=== PATIENT | female | born 1975 | race Caucasian/White ===

== ENCOUNTER 2023-05-02 09:29 | Outpatient (REF) | payer OTHER, SELFPAY ==
--- NOTE | ~2023-05-02 | XR_ITS ---
EXAMINATION: XR ANKLE, LEFT CLINICAL INFORMATION: Left ankle injury one week ago. COMPARISON: None available. TECHNIQUE: AP, lateral, and mortise views of the left ankle. FINDINGS: There is a small calcaneal heel enthesophyte. Ankle mortise and subtalar joints are normal. No visible acute fracture, dislocation or subluxation seen. There is moderate bimalleolar soft tissue swelling. XR/XR ankle LT min 3V IMPRESSION: 1. Moderate bimalleolar soft tissue swelling. No visible acute fracture or dislocation seen. 2. Small calcaneal heel enthesophyte.
== END 2023-05-02 09:30 | disposition home or self-care (01) ==
LOC: HO.HHCX 09:29
PROVIDERS: Visit Provider Family Medicine
DX: S93.492A Sprain of other ligament of left ankle, initial encounter (principal)
CPT/HCPCS: 73610

== ENCOUNTER 2023-10-15 18:06 | Outpatient (REF) | payer OTHER, SELFPAY | END 2023-10-15 18:07 | disposition home or self-care (01) | LOC: HO.HHCLNP 18:06 | PROVIDERS: Visit Provider Student in an Organized Health Care Education/Training Program | DX: H02.9 Unspecified disorder of eyelid (principal) | CPT/HCPCS: 36415; 87255 ==

== ENCOUNTER → 2024-04-29 09:17 | Outpatient (BNV) | payer OTHER, SELFPAY | PROVIDERS: Visit Provider Radiology Diagnostic Radiology | DX: M25.562 Pain in left knee (principal) | CPT/HCPCS: 73564 ==

== ENCOUNTER 2024-06-30 12:53 | Outpatient (REF) | payer OTHER, SELFPAY ==
--- OUTSIDE RECORDS SUMMARY | 2024-06-30 14:54 | XMS_ITS | Encounter Summary ---
Author Organization [facility] Address 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 Role Phone Emelyn Kenney MD Primary Care Provider [phone] Belle Castellanos OD Unavailable Encounter Details Date Type Department Care Team (Late st Contact Info) Description 04/26/2022 Abstract [facility] [place] [facility] [address] [place], [place] [phone] Emelyn Kenney MD [address] [place], [place] [phone] Social History Tobacco Use Types Packs/Day Years Used Date Smoking Tobacco: Never Assessed Comments Unknown Sex and Gender Information Value Date Recorded Sex Assigned at Female 01/21/2022 10:16 AM EDT Legal Sex Female 10:16 AM EDT Gender Identity Female 01/21/2022 10:16 AM EDT Sexual Orientation Straight 01/21/2022 10 :16 AM EDT documented as of this encounter Plan of Treatment Not on file documented as of this encounter Procedures Procedure Name Priority Date/Time Associated Diagnosis Comments MAMMOGRAPHY Routine 09/21/2018 PAP SMEAR Routine 10/25/2016 12:00 AM EDT documented in this encounter Results * Mammography (09/21/2018) Mammogram normal Anatomical Region Laterality Modality Other Historical Provider HEALTH MAINTENANCE Final Result * Pap Smear (10/25/2016 12:00 AM EDT) Swab us Historical Provider LAB CYTOLOGY ORDERABLES F inal Result IMAGING documented in this encounter Visit Diagnoses Not on filedocumented in this encounter Care Teams Dairy Farm Operator Relationship Specialty Start Date End Date Emelyn Kenney MD [address] [place], [place] [phone] PCP - General Family Medicine 11/12/11 Belle Castellanos OD [address] [place] [address] Optometry 03/30/24 Kutr Jane MD [facility] [address] [place] [address] Electrophysiology 03/30/24 documented as of this encounter
--- OUTSIDE RECORDS SUMMARY | 2024-06-30 14:54 | XMS_ITS | Clinical Summary ---
Author Organization [employer] Address [address] [place] [address] Care Team Providers Care Senior Vice President And Chief Information Officer Name Role Phone Emelyn Kenney MD Primary Care Provider [phone] Belle Castellanos OD Unavailable [phone] Allergies No known active allergies Medications metoprolol tartrate (Lopressor) 25 MG tabletIndication s:Hypertension, unspecified type TAKE 1/2 TABLET BY MOUTH 2 TIMES EVERY DAY 90 tablet 3 4 Active omeprazole (PriLOSEC) [address] Moran ns:Gastroesophag eal reflux disease without esophagitis TAKE 1 CAPSULE BY MOUTH TWICE A DAY 180 capsule 3 4 Active warfarin (Coumadin) 5 MG tabletIndication s:Heart valve disorder TAKE DIRECTED BY COUMADIN CLINIC BASED ON INR LEVEL. MAX 2 TABLETS BY MOUTH PER DAY. 180 tablet 3 4 Active Active Problems Problem Noted Date Diagnosed Date Dietary counseling 04/19/2024 Assessment & Plan (04/19/2024 9:36 AM EST): Dietary Recommendations: Fruits, vegetables, whole grains, protein foods, and fat-free or low-fat dairy products are healthy choices. Eat different types of protein foods in your diet. This can include seafood, lean meats, poultry, beans, peas, lentils, nuts, seeds, soy products, and eggs. Limit foods and beverages higher in added sugars, saturated fat, and sodium. Exercise counseling 04/19/2024 Assessment & Plan (04/19/2024 9:36 AM EST): Exercise Recommendations: At least 150 minutes of moderate-intensity physical activity per week, or an equivalent combination of moderate- and vigorous-intensity activity Prediabetes 04/19/2024 Overview (04/19/2024): Lab Results Component Value Date HGBA1C 5.7 03/29/2024 -encouraged lifestyle modifications. Assessment & Plan (04/19/2024 9:40 AM EST): Lab Results Component Value Date HGBA1C 5.7 03/29/2024 -encouraged lifestyle modifications. Right knee pain 04/19/2024 Overview (04/19/2024): R knee pain x3 week. No erythema, induration or increased warmth on exam. No palpable effusion. Suspect arthritic changes versus pressure from excess tissue. Discussed resting and doing exercise as tolerable. Offered PT, pt declined. Encouraged to monitor pain to see if after starting GLP-1 if pain improves. Assessment & Plan (04/19/2024 9:43 AM EST): R knee pain x3 week. No erythema, induration or increased warmth on exam. No palpable effusion. Suspect arthritic changes versus pressure from excess tissue. Discussed resting and doing exercise as tolerable. Offered PT, pt declined. Encouraged to monitor pain to see if after starting GLP-1 if pain improves. Other specified health status 03/29/2024 Overview (04/19/2024): -next comprehensive annual evaluation due after 04/19/25 -eye care facilitated by [facility] -dental home is [facility], but does not visit the dentist due to anxiety. -belkis care proxy 03/29/24 Assessment & Plan (04/19/2024 9:32 AM EST): -next comprehensive annual evaluation due after 04/19/25 -eye care facilitated by [facility] -dental home is [facility], but does not visit the dentist due to anxiety. -belkis care proxy 03/29/24 Screening mammogram for breast cancer 03/29/2024 Overview (03/29/2024): - Ordered BI Mammogram Screening Tomosynthesis Bilateral 03/29/24 Assessment & Plan (03/29/2024 10:25 AM EST): - Ordered BI Mammogram Screening Tomosynthesis Bilateral 03/29/24 Pre-syncope 03/29/2024 Overview (03/29/2024): Presyncopal episode at work 03/29/23 with associated hot flash. Likely hotflash vasomotor sx. EKG nl, BS, A12c and hgb normal, Continue to monitor cool drinks and hydration Assessment & Plan (03/29/2024 12:13 PM EST): Presyncopal episode at work 03/29/23 with associated hot flash. Likely hotflash vasomotor sx. EKG nl, BS, A12c and hgb normal, Continue to monitor cool drinks and hydration Cardiac risk counseling 02/26/2024 Overview (02/26/2024): Calculated 02/26/24 The ASCVD Risk score (Sofia TODD, et al., 2019) failed to calculate for the following reasons: Cannot find a previous HDL lab Cannot find a previous total cholesterol lab No results found for: LDLCHOLCAL -Atherosclerotic Cardiovascular Disease (ASCVD) Risk Calculator is intended for a person age 40-79 without ASCVD and with LDL-cholesterol < 190/mg/dl to assesses the chances of developing heart disease over the next 10 years. -ACC/AHA risk categories based on a person's estimated 10-year risk of CVD: ?Low - <5 percent ?Borderline risk - 5 to 7.4 percent ?Intermediate risk- 7.5 to 19.9 percent ?High risk- >=20 percent -Tobacco cessation: not applicable -Statin therapy:N/A -Importance of moderate physical activity and nutrition interventions discussed. Colon cancer screening 04/30/2023 Overview (03/29/2024): -due for colon cancer screening, discuss at next visit - Ordered Cologuard Colon Cancer Screening 03/29/24 Assessment & Plan (03/29/2024 10:24 AM EST): -due for colon cancer screening, discuss at next visit - Ordered Cologuard Colon Cancer Screening 03/29/24 Tricuspid valve insufficiency 07/18/2022 Obesity 07/18/2022 Overview (04/19/2024): Baseline weight: 237 lbs 04/19/24 -given BMI >30kg/m2 or >27kg/m2 with one or more weight related comorbidities including hypertension, prediabetes, heart disease, and atrial fibrillation, pt is a candidate for glucagon-like peptide-1s (GLP-1) to assist with weight loss -pt has attempted > 3 months of dietary changes and increased physical activity without significant reduction in weight -patient counseled this medication is to be used in combination with reduced calorie diet and increased physical activity -Contraindication to phentermine: uncontrolled hypertension and arrhythmias -Reviewed w/ pt side effects of GLP1 and how to mitigate incl eating small portions and do not eat through sensation of fullness. No personal or family h/o papillary thyroid cancer. No personal h/o pancreatitis. Does/does not have retinopathy. Refrigerate but do not freeze. -For Zepbound (tirzepatide) Start 2.5mg subcutaneously q week x 1 month, then 5mg subcutaneously q week. May increased by 2.5mg q 4 weeks with max 15mg/wk -rx for tirzepatitis 2.5mg written 03/29/24 -has not received Zepbound, called Pharmacy, who is awaiting approval and will check in for needed approval 04/19/24 Assessment & Plan (04/19/2024 9:39 AM EST): Baseline weight: 237 lbs 04/19/24 -given BMI >30kg/m2 or >27kg/m2 with one or more weight related comorbidities including hypertension, prediabetes, heart disease, and atrial fibrillation, pt is a candidate for glucagon-like peptide-1s (GLP-1) to assist with weight loss -pt has attempted > 3 months of dietary changes and increased physical activity without significant reduction in weight -patient counseled this medication is to be used in combination with reduced calorie diet and increased physical activity -Contraindication to phentermine: uncontrolled hypertension and arrhythmias -Reviewed w/ pt side effects of GLP1 and how to mitigate incl eating small portions and do not eat through sensation of fullness. No personal or family h/o papillary thyroid cancer. No personal h/o pancreatitis. Does/does not have retinopathy. Refrigerate but do not freeze. -For Zepbound (tirzepatide) Start 2.5mg subcutaneously q week x 1 month, then 5mg subcutaneously q week. May increased by 2.5mg q 4 weeks with max 15mg/wk -rx for tirzepatitis 2.5mg written 03/29/24 -has not received Zepbound, called Pharmacy, who is awaiting approval and will check in for needed approval 04/19/24 Assessment & Plan (03/29/2024 10:23 AM EST): Baseline weight: 235 lbs 03/29/24 -given BMI >30kg/m2 or >27kg/m2 with one or more weight related comorbidities including hypertension, heart disease, and atrial fibrillation, pt is a candidate for glucagon-like peptide-1s (GLP-1) to assist with weight loss -pt has attempted > 3 months of dietary changes and increased physical activity without significant reduction in weight -patient counseled this medication is to be used in combination with reduced calorie diet and increased physical activity -Contraindication to phentermine: uncontrolled hypertension and arrhythmias -Reviewed w/ pt side effects of GLP1 and how to mitigate incl eating small portions and do not eat through sensation of fullness. No personal or family h/o papillary thyroid cancer. No personal h/o pancreatitis. Does/does not have retinopathy. Refrigerate but do not freeze. -For Zepbound (tirzepatide) Start 2.5mg subcutaneously q week x 1 month, then 5mg subcutaneously q week. May increased by 2.5mg q 4 weeks with max 15mg/wk -rx for tirzepatitis 2.5mg written 03/29/24 S/P MVR (mitral valve replacement) 07/18/2022 Overview (07/18/2022): Hx severe mitral stenosis and severe tricuspid regurgitation. S/P mechanical mitral valve repair 01/17/17 with tricuspid valve repair and removal of left atrial appendage as well as placement of pacemaker. On chronic anticoagulation. Assessment & Plan (04/19/2024 9:35 AM EST): Hx severe mitral stenosis and severe tricuspid regurgitation. S/P mechanical mitral valve repair 01/17/17 with tricuspid valve repair and removal of left atrial appendage as well as placement of pacemaker. On chronic anticoagulation. Assessment & Plan (07/18/2022 9:28 AM EDT): Hx severe mitral stenosis and severe tricuspid regurgitation. S/P mechanical mitral valve repair 01/17/17 with tricuspid valve repair and removal of left atrial appendage as well as placement of pacemaker. On chronic anticoagulation. Pleural effusion 07/18/2022 Mitral valve stenosis 07/18/2022 Iron deficiency anemia 07/18/2022 Heart murmur 07/18/2022 Abnormal cervical Papanicolaou smear 07/18/2022 Overview (04/19/2024): 04/2012 pap negatvie09/22 pap ASCUS. 11/23 colpo LGSIL, bx CIN1, ecc qns. 03/26: pap SCUS +HPV. 07/24: pap ASCUS. 02/23: pap neg. 06/25: pap ASCUS. 10/25: pap nge. 07/26 - pap: neg. 05/27 pap neg. 03/01 pap LGSIL. -PAP on 06/17/22 NILM, HPV neg, next due on 07/19/2027 Pacemaker 07/18/2022 Overview (07/18/2022): Continue to FU every 6 months with specialist. Assessment & Plan (07/18/2022 9:28 AM EDT): Continue to FU every 6 months with specialist. Chronic fatigue 07/18/2022 Overview (07/18/2022): Improved. Assessment & Plan (07/18/2022 9:27 AM EDT): Improved. Anticoagulated on Coumadin 07/18/2022 Overview (07/18/2022): Followed [facility] coumadin clinic. Goal INR 2.5-3.5. - Pt uses 7.5-10mg mg tabs daily. Assessment & Plan (07/18/2022 9:27 AM EDT): Followed [facility] coumadin clinic. Goal INR 2.5-3.5. - Pt uses 7.5-10mg mg tabs daily. Gastroesophageal reflux disease 07/18/2022 Vitamin D deficiency 11/06/2021 Overview (07/18/2022): CBC w/diff to be performed., CT/NG BY PCR to be performed., Ferritin to be performed., General Chem Profile to be performed., Hep C Ab w/Rflx to Hep C RNA, Quant, RT-PCR to be performed., HIV 1 And 2 AG/AB Combo to be performed., Iron And IBC to be performed., Lipid Panel to be performed., RPR, Rfx Qn RPR/Confirm TP- PA to be performed., TSH to be performed., Vitamin B12 to be performed. and Vitamin D, 25-Hydroxy to be performed. Assessment & Plan (07/18/2022 9:30 AM EDT): CBC w/diff to be performed., CT/NG BY PCR to be performed., Ferritin to be performed., General Chem Profile to be performed., Hep C Ab w/Rflx to Hep C RNA, Quant, RT-PCR to be performed., HIV 1 And 2 AG/AB Combo to be performed., Iron And IBC to be performed., Lipid Panel to be performed., RPR, Rfx Qn RPR/Confirm TP- PA to be performed., TSH to be performed., Vitamin B12 to be performed. and Vitamin D, 25-Hydroxy to be performed. Atrial fibrillation and flutter 11/06/2021 Overview (03/30/2024): Noted incidentally on PE 09/26/16. Pt reported LE swelling and fatigue on exertion for about 1 year. EKG reveals atrial flutter at 158 BPM. Hx severe mitral stenosis and severe tricuspid regurgitation. S/P mechanical mitral valve repair 01/17/17 with tricuspid valve repair and removal of left atrial appendage as well as placement of pacemaker. On chronic anticoagulation. PT was to have ablation of aflutter but was in NSR when she presented to Dr. Handy's office. Pt is followed by Dr. Krishnan; last seen in April for echo. Advise seek medical attention for palpitations or chest pain. She will continue cardiac rehab. - TSH, chol profile, fasting BS normal 09/2016 -continue metoprolol 1/2 tab po bid -continue coumadin 7.5-10mg per coumadin clinic Assessment & Plan (04/19/2024 9:35 AM EST): Noted incidentally on PE 09/26/16. Pt reported LE swelling and fatigue on exertion for about 1 year. EKG reveals atrial flutter at 158 BPM. Hx severe mitral stenosis and severe tricuspid regurgitation. S/P mechanical mitral valve repair 01/17/17 with tricuspid valve repair and removal of left atrial appendage as well as placement of pacemaker. On chronic anticoagulation. PT was to have ablation of aflutter but was in NSR when she presented to Dr. Handy's office. Pt is followed by Dr. Krishnan; last seen in April for echo. Advise seek medical attention for palpitations or chest pain. She will continue cardiac rehab. - TSH, chol profile, fasting BS normal 09/2016 -continue metoprolol 1/2 tab po bid -continue coumadin 7.5-10mg per coumadin clinic Assessment & Plan (03/29/2024 12:14 PM EST): Noted incidentally on PE 09/26/16. Pt reported LE swelling and fatigue on exertion for about 1 year. EKG reveals atrial flutter at 158 BPM. Hx severe mitral stenosis and severe tricuspid regurgitation. S/P mechanical mitral valve repair 01/17/17 with tricuspid valve repair and removal of left atrial appendage as well as placement of pacemaker. On chronic anticoagulation. PT was to have ablation of aflutter but was in NSR when she presented to Dr. Handy's office. Pt is followed by Dr. Krishnan; last seen in April for echo. Advise seek medical attention for palpitations or chest pain. She will continue cardiac rehab. - TSH, chol profile, fasting BS normal 09/2016 -continue metoprolol 1/2 tab po bid -continue coumadin 7.5-10mg per coumadin clinic Assessment & Plan (07/18/2022 9:26 AM EDT): Noted incidentally on PE 09/26/16. Pt reported LE swelling and fatigue on exertion for about 1 year. EKG reveals atrial flutter at 158 BPM. Hx severe mitral stenosis and severe tricuspid regurgitation. S/P mechanical mitral valve repair 01/17/17 with tricuspid valve repair and removal of left atrial appendage as well as placement of pacemaker. On chronic anticoagulation. PT was to have ablation of aflutter but was in NSR when she presented to Dr. Handy's office. Pt is followed by Dr. Krishnan; last seen in April for echo. Advise seek medical attention for palpitations or chest pain. She will continue cardiac rehab. - TSH, chol profile, fasting BS normal 09/2016 -continue metoprolol 1/2 tab po bid -continue coumadin 7.5-10mg per coumadin clinic Resolved Problems Problem Noted Date Diagnosed Date Resolved Date H/O heart valve replacement with mechanical valve 07/18/2022 03/30/2024 Alterations of sensations 07/18/2022 Overview (07/18/2022): Episodes of altered sensation since 2018, about 2 times per month, lasting 1-2 minutes of left sided numbness and tingling with associated hot flash. No altered consciousness. Differential includes panic attack, perimenopausal symptoms, atypical migraine, less likely atypical seizure. -Will check EEG Assessment & Plan (07/18/2022 9:29 AM EDT): Episodes of altered sensation since 2018, about 2 times per month, lasting 1-2 minutes of left sided numbness and tingling with associated hot flash. No altered consciousness. Differential includes panic attack, perimenopausal symptoms, atypical migraine, less likely atypical seizure. -Will check EEG Paresthesia 07/18/2022 07/18/2022 Overview (07/18/2022): Further diagnostic evaluations ordered today include(s) EEG Awake to be performed. Assessment & Plan (07/18/2022 9:30 AM EDT): Further diagnostic evaluations ordered today include(s) EEG Awake to be performed. Gastritis 07/18/2022 07/18/2022 Encounters Date Type Department Care Team Description 05/28/[address] [address] Emelyn Kenney MD Prior Authorization ([employer] [facility] Request: Zepbound) 04/29/2024 8:40 AM EST Office Visit [facility] [address] [place] [id number] Germain Gee MD Left knee pain, unspecified chronicity (Primary Dx) 04/29/2024 Travel 04/19/2024 9:15 AM EST Office Visit [address] [address] Emelyn Kenney MD Atrial fibrillation and flutter (CMS/HCC) (Primary Dx); S/P MVR (mitral valve replacement); Prediabetes; Right knee pain, unspecified chronicity; Class 3 severe obesity due to excess calories with serious comorbidity and body mass index (BMI) of 45.0 to 49.9 in adult (CMS/HCC); Dietary counseling; Exercise counseling; Other specified health status; Screening for colon cancer 04/19/[address] [address] Emelyn Kenney MD 04/19/2024 Travel 04/08/2024 Telephone [facility] [address] [place] [address] Mara Stark MA Breast Cancer Screening 04/08/2024 Patient Outreach [address] [address] Emelyn Kenney MD Pre-visit Planning (Pre-visit planning - LVM ) 04/05/[address] [address] Emelyn Kenney MD Prior Authorization (Zepbound) from Last 3 Months Immunizations Name Administration Dates Next Due Hep B, adult 01/17/2023,08/20/2022,07/18/2022 Influenza Injectable Quadriv alant Preservative Free IIV4 MDCK 12/06/2021,12/12/2020 Influenza Whole 03/22/2009 Influenza injectable quadriv alent IIV4 with preservative 12/02/2018,12/03/2017 Influenza, Split (incl. reno fied surface antigen) 12/26/2011 Influenza, seasonal, injecta ble, preservative free 12/24/2023 Moderna Covid-19 Vaccine 6+ Bivalent 05/09/2022 Pfizer Covid-19 Vaccine 12+ 12/24/2023 Pneumococcal Conjugate PCV 20 03/29/2024 Pneumococcal Polysaccharide PPSV23 04/18/2017 TD (adult), 2 Lf tetanus tox oid, preservative free, adsorbed 10/30/2005 Tdap 06/29/2023,09/09/2015,12/26/2011 Family History Medical History Relation Name Comments Heart disease Mother Hypertension Mother Ovarian cancer Mother Relation Name Status Comments Mother Social History Tobacco Use Types Packs/Day Years Used Date Smoking Tobacco: Former Cigarettes Smokeless Tobacco: Never Tobacco Cessation:Counseling Given: Not Answered Alcohol Use Standard Drinks/Week Comments Never 0 (1 standard drink = 0.6 oz pur e alcohol) Depression Answer Date Recorded Patient Health Questionnaire-9 Score 10 03/29/2024 Patient Health Questionnaire-9 Score 10 03/29/2024 Last PHQ-9: Questionnaire Data Not on file 0 03/29/2024 Housing Stability Answer Date Recorded What is your housing situation today? I have elma sutton 03/29/[address] you li ve. Do you have problems with any of the following? None of the above 03/29/2024 Food Insecurity Answer Date Recorded Within the past 12 months, y ou worried that your food would run out before you got money to buy more: Never True 03/29/2024 Within the past 12 months,th e food you bought just didn't last and you didn't have enough money to get more: Never True 08/2024 Transportation Answer Date Recorded In the past 12 months, has l ack of transportation kept you from medical appts, meetings, work or from getting things needed for daily living? No 03/29/2024 Utilities Answer Date Recorded In the past 12 months, has t he electric, gas, oil or water company threatened to shut off services in your home? No 03/29/2024 Depression Answer Date Recorded Patient Health Questionnaire-2 Score 3 03/29/2024 Internet Access Answer Date Recorded Internet Access Q1 Yes 03/29/2024 Internet Access Q2 Not on file 03/29/2024 Comments Unknown Sex and Gender Information Value Date Recorded Sex Assigned at Female 01/21/2022 10:16 AM EDT Legal Sex Female 10:16 AM EDT Gender Identity Female 01/21/2022 10:16 AM EDT Sexual Orientation Straight 01/21/2022 10 :16 AM EDT Last Filed Vital Signs Vital Sign Reading Time Taken Comments Blood Pressure 159/70 04/29/2024 8:43 AM EST Pulse 77 04/29/2024 8:43 AM EST Temperature 36.3 ??C (97.3 ??F) 04/29/2024 8:43 AM ES T Respiratory Rate 17 04/29/2024 8:43 AM EST Oxygen Saturation 98% 04/29/2024 8:43 AM EST Inhaled Oxygen Concentration - - Weight 109 kg (240 lb 6.4 oz) 04/29/2024 8:43 AM EST Height 152.4 cm (5') 04/19/2024 9:11 AM EST Body Mass Index 46.95 04/19/2024 9:11 AM EST Plan of Treatment Health Maintenance Due Date Last Done Comments CT Colonography 1974 FIT 1975 FOBT 1975 Sigmoidoscopy 1975 Mammogram 10/16/2020 10/16/2018, 09/21/2018 Depression Monitoring (PHQ-9) 09/26/2024 03/29/2024, 03/29/2024 Zoster Vaccines (1 of 2) 2024 Alcohol/Substance Use Screening 03/29/2025 03/29/2024 Depression Screening 03/29/2025 03/29/2024, 03/29/19 25 Diabetes: Hemoglobin A1C 03/29/2025 03/29/2024 SDOH Screening 03/29/2025 03/29/2024 Family Planning (PISQ) 04/19/2025 04/19/2024 Tobacco Screening 04/19/2025 04/19/2024 Lipid Panel 04/26/2025 04/26/2020 Colonoscopy 05/27/2027 05/26/2024 Colorectal Cancer Screening 05/27/2027 FIT DNA/Cologuard 05/27/2027 05/26/2024, 05/19/2024 Cervical Cancer Screening 07/19/2027 HPV/Cotest 07/19/2027 07/18/2022 Pap Smear 07/19/2027 07/18/2022, 10/25/2016 DTaP/Tdap/Td Vaccines (4 - Td or Tdap) 06/28/2033 06/29/2023, 09/09/2015, 12/26/2011, Additional history exists RSV Patients and Patients Aged 60 years or older (1 - 1-dose 75+ series) 2049 HIV Screening Completed 04/26/2020 Hepatitis C Screening Completed 04/26/2020, 021 Hepatitis B Vaccines Completed 01/17/2023, 08/20/2022, 07/18/2022 COVID-19 Vaccine Completed 12/24/2023, , 05/30/2021, Additional history exists Influenza Vaccine Completed 12/24/2023, , 12/12/2020, Additional history exists Pneumococcal Vaccine: Pediatrics (0 to 5 Years) and At-Risk Patients (6 to 49) Years) Completed 03/29/2024, 04/18/2017 HIB Vaccines Aged Out No longer eligi ble based on patient's age to complete this topic HPV Vaccines Aged Out No longer eligi ble based on patient's age to complete this topic Hepatitis A Vaccines Aged Out No long er eligible based on patient's age to complete this topic IPV Vaccines Aged Out No longer eligi ble based on patient's age to complete this topic Meningococcal Vaccine Aged Out No marky vy eligible based on patient's age to complete this topic RSV under 20 months Aged Out No longe r eligible based on patient's age to complete this topic Rotavirus Vaccines Aged Out No longer eligible based on patient's age to complete this topic Procedures Procedure Name Priority Date/Time Associated Diagnosis Comments COLONOSCOPY Routine 05/26/2024 2:55 PM EST LAB COLOGUARD?? COLON CANCER SCREEN Routine 05/26/2024 LAB COLOGUARD?? COLON CANCER SCREEN Routine 05/19/2024 12:35 PM EST Screening for colon cancer XR KNEE 4+ VIEWS LEFT Routine 04/29/2024 9:17 AM EST Left knee pain, unspecified chronicity POCT GLYCATED HEMOGLOBIN, TOTAL Routine 03/29/2024 10:02 AM EST Pre-syncope THINPREP PAP, HPV MRNA E6/E7 RFX HPV 16,18/45, CHLAMYDIA/N.GONORRHO EAE Routine 07/18/2022 10:01 AM EDT Pap smear for cervical cancer screening ZZZ HISTORICAL HEPATITIS C AB W/REFL TO HCV RNA, QN, PCR Routine 04/26/2020 8:05 AM EST HIV 1/2 ANTIGEN/ANTIBODY, FOURTH GENERATION W/RFL Routine 04/26/2020 8:05 AM EST LIPID PANEL, STANDARD Routine 04/26/2020 8:05 AM EST BI MAMMOGRAM SCREENING BILATERAL Routine 10/16/2018 8:29 AM EDT from Last 3 Months or Most Recently Relevant to Health Maintenance Results * Cologuard?? colon cancer screening (05/26/2024) Only the most recent of2 resultswithin the time period is included. Cologuard Cancer Screen Negative Stool Anal structure / Unknown us Historical Provider LAB MOLECULAR DIAGNOSTICS ORDERABLES Final Result * XR Knee 4+ Views Left (04/29/2024 9:17 AM EST) Anatomical Region Laterality Modality Lower Extremities, Knee Left Radiogra phic Imaging 04/29/2024 9:17 AM EST Narrative 04/29/2024 10:15 AM EST ?[facility] ?[address] ?[place] [address] ?XRay Report ? Signed ? Patient: Schuler,Grisel ?MR#: [id number] ?? 34 ? : 1975 ?Acct:[id number] ? Age/Sex: 48 / F ?ADM Date: 04/29/24 ? Loc: HO.HHCX ? Attending Dr: Germain Gee MD ? Ordering Physician: Germain Gee MD ?? Date of Service: 04/29/24 ?? Procedure(s): XR knee LT 4V ?? Accession Number(s): [id number] ? cc: Germain Gee MD ? EXAMINATION: ??XR KNEE 4 OR MORE VIEWS LEFT ? HISTORY: 4-week duration of non-traumatic anterior left knee pain ? COMPARISON: There are no prior studies available for comparison. ? FINDINGS: ? Five views of the left knee are submitted. ??Osseous mineralization is ?? normal. ??There is no fracture or dislocation. ??The joint spaces are ?? preserved. ??There is a small suprapatellar joint effusion. ? XR/XR knee LT 4V ?? IMPRESSION: ? Small joint effusion. Otherwise unremarkable examination of the left ?? knee. ? Electronically signed by: ??Jareth Myers MD ??04/29/2024 10:12 AM EST ?? RP ? Dictated By: ?Jareth Myers MD ? Signed By: ?<Electronically signed by Jareth Myers MD in OV> ?04/29/24 1012 ? DD/ 0917 ? TD/TT: 04/29/24 1007 ? Field Service Technician: ? Procedure Note Kahlil, Image - 04/29/[address] [address] XRay Report Signed Patient: Marcos Schuler#: [id number] 34 : 1975Acct:[id number] Age/Sex: 48 / FADM Date: 04/29/24 Loc: HO.HHCX Attending Dr: Germain Gee MD Ordering Physician: Germain Gee MD Date of Service: 04/29/24 Procedure(s): XR knee LT 4V Accession Number(s): [id number] cc: Germain Gee MD EXAMINATION: XR KNEE 4 OR MORE VIEWS LEFT HISTORY: 4-week duration of non-traumatic anterior left knee pain COMPARISON: There are no prior studies available for comparison. FINDINGS: Five views of the left knee are submitted. Osseous mineralization is normal. There is no fracture or dislocation. The joint spaces are preserved. There is a small suprapatellar joint effusion. XR/XR knee LT 4V IMPRESSION: Small joint effusion. Otherwise unremarkable examination of the left knee. Electronically signed by: Jareth Myers MD 04/29/2024 10:12 AM EST Dictated By: Jareth Myers MD Signed By: <Electronically signed by Jareth Meyrs MD in OV> 04/29/24 1012 DD/ 0917 TD/TT: 04/29/24 1007 Field Service Technician: Germain Gee MD IMG XR PROCEDURES Final Result * POCT HGB A1C (03/29/2024 10:02 AM EST) Hemoglobin A1C 5.7 4.0 - 6.0 % QC Media Lot # [id number] Lot# Expiration Date ,522 Blood 03/29/2024 10:0 2 AM EST Emelyn Kenney MD POINT OF CARE TEST ENTER/E DIT ORDERABLES Final Result * Thinprep PAP, HPV mRNA E6/E7 RFX HPV 16,18/45, Chlamydia/N. Gonorrhoeae (07/18/2022 10:01 AM EDT) Clinical Information: LAST PAP NILM HPV NEG 2016 [facility] LMP: NONE GIVEN [facility] Prev. PAP: NONE GIVEN [facility] Prev. BX: NO [facility] SOURCE: None given [facility] Statement Of Adequacy: [employer] [place] [employer] Comment: Satisfactory for evaluation. Endocervical/transformation zone component absent. Interpretation/Re sult: Negative for intraepithelial lesion or malignancy. [employer] [place] [employer] [facility] Furniture Upholsterer: Levar orozco [employer] [place] [employer] [facility] Comment: GSG, CT(ASCP) CT screening location: [address] ??[id number] (Always Message) [facility] [employer] [place] [employer] Comment: EXPLANATORY NOTE: The Pap is a screening test for cervical cancer. It is not a diagnostic test and is subject to false negative and false positive results. It is most reliable when a satisfactory sample, regularly obtained, is submitted with relevant clinical findings and history, and when the Pap result is evaluated along with historic and current clinical information. HPV nRNA E6/E7 Not Detected Not Detected [employer] [place] [employer] Comment: Methodology: Rn Managed Care-Mediated Amplification This assay detects E6/E7 viral messenger RNA (mRNA) from 14 high-risk HPV types (16,18,31,33,35,39,45,51,52,56,58,59,66,68). Cervical sources are required for HPV testing. If a vaginal source from a patient who has had a total hysterectomy with removal of cervix was submitted, please contact the testing laboratory for alternative testing options. For additional information, please refer to http://[employer]/faq/GYD504c4 (This link if provided for information/ educational purposes only.) Chlamydia trachomatis RNA, TMA, Urogenital NOT DETECTED NOT DETECTED [employer] [place] [employer] Neisseria gonorrhoeae RNA, TMA, Urogenital NOT DETECTED NOT DETECTED [employer] [place] [employer] (Always Message) [facility] [employer] [place] [employer] Comment: The analytical performance characteristics of this assay, when used to test SurePath(TM) specimens have been determined by [employer]. The modifications have not been cleared or approved by the FDA. This assay has been validated pursuant to the CLIA regulations and is used for clinical purposes. For additional information, please refer to https://[employer]/faq/EBH339 (This link is being provided for information/ educational purposes only.) Pap Vial 07/18/2022 10:0 1 AM EDT 07/19/2022 5:25 AM EDT Emelyn Kenney MD LAB PATHOLOGY ORDERABLES F inal Result [facility] [address] [facility], [place] [address] [employer] [facility] [address] [place] [address] * HEPATITIS C AB W/REFL TO HCV RNA, QN, PCR (04/26/2020 8:05 AM EST) HEPATITIS C ANTIBODY NON-REACT BUBBA NON-REACT BUBBA [facility] INDEX 0.02 <1.00 [facility] Comment: ?? HCV antibody was non-reactive. There is no laboratory ?? evidence of HCV infection. ?? In most cases, no further action is required. However, if recent HCV exposure is suspected, a test for HCV RNA (test code 35961) is suggested. ?? For additional information please refer to http://education.[employer]/faq/BEQ88f8 (This link is being provided for informational/ educational purposes only.) ?? 04/26/2020 8:05 AM EST Emelyn Kenney MD HISTORICAL/NON ORDERABLE L ABS Final Result [facility] [address] * HIV 1/2 ANTIGEN/ANTIBODY,FOURTH GENERATION W/RFL (04/26/2020 8:05 AM EST) HIV-1/2 ANTIGEN AND ANTIBODIES, 4TH GENERATION W/ REFLEX NON-REACT BUBBA NON-REACT BUBBA [facility] Comment: HIV-1 antigen and HIV-1/HIV-2 antibodies were not detected. There is no laboratory evidence of HIV infection. ?? PLEASE NOTE: This information has been disclosed to you from records whose confidentiality may be protected by state law. ??If your state requires such protection, then the state law prohibits you from making any further disclosure of the information without the specific written consent of the person to whom it pertains, or as otherwise permitted by law. A general authorization for the release of medical or other information is NOT sufficient for this purpose. ? For additional information please refer to http://[employer]/faq/IQG346 (This link is being provided for informational/ educational purposes only.) ? The performance of this assay has not been clinically validated in patients less than 2 years old. ?? 04/26/2020 8:05 AM EST us Emelyn Kenney MD LAB BLOOD ORDERABLES Final Result [facility] [address] * (ABNORMAL) LIPID PANEL, STANDARD (04/26/2020 8:05 AM EST) Chol/HDLC Ratio 4.6 <5.0 (calc) [facility] Cholesterol, Total 180 <200 mg/dL [facility] HDL Cholesterol 39(L) > OR = 50 mg/dL [facility] LDL Cholesterol 117(H) mg/dL (calc) [facility] Comment: Reference range: <100 ?? Desirable range <100 mg/dL for primary prevention; ?? <70 mg/dL for patients with CHD or diabetic patients ?? with > or = 2 CHD risk factors. ?? LDL-C is now calculated using the Zahra ?? calculation, which is a validated novel method providing ?? better accuracy than the Friedewald equation in the ?? estimation of LDL-C. ?? Gregg JONES et al. JASVIR. 2013;310(19): 8373-6529 ?? (http://[employer]/faq/EQT736) Non-HDL Cholesterol 141(H) <130 mg/dL (calc) [facility] Comment: For patients with diabetes plus 1 major ASCVD risk ?? factor, treating to a non-HDL-C goal of <100 mg/dL ?? (LDL-C of <70 mg/dL) is considered a therapeutic ?? option. Triglycerides 128 <150 mg/dL [facility] 04/26/2020 8:05 AM EST Emelyn Kenney MD LAB BLOOD ORDERABLES Final Result [facility] [address] * DIGITAL BILATERAL SCREEN 1 (10/16/2018 8:29 AM EDT) Anatomical Region Laterality Modality Breast Bilateral Mammography 10/16/2018 8:29 AM EDT Narrative 10/16/2018 8:33 AM EDT Refer to the Notes tab for result details [facility] Procedure: DIGITAL BILATERAL SCREEN 1 Procedure Note Provider, MD Rica - 06/15/2022 Refer to the Notes tab for result details [facility] Procedure: DIGITAL BILATERAL SCREEN 1 Emelyn Kenney MD IMG BI PROCEDURES Final Re sult from Last 3 Months or Most Recently Relevant to Health Maintenance Insurance [facility] Advance Directives Documents on File Type Date Recorded Patient Specimen Processor Expl anation Advance Directives and Living Will 03/30/2024 2:41 PM Health Care Proxy Care Teams Senior Vice President And Chief Information Officer Relationship Specialty Start Date End Date [place], [place] Emelyn [address] [place] [id number] PCP - General Family Medicine 11/12/11 Belle Castellanos OD [address] [place] [address] Optometry 03/30/24 Kurt Jane MD [facility] Cardiology [address] [facility] [address] [place] [address] Electrophysiology 03/30/24
== END 2024-06-30 12:54 | disposition home or self-care (01) ==
LOC: HO.MAMMO 12:53
PROVIDERS: PCP Family Medicine; Visit Provider Family Medicine
DX: Z12.31 Encounter for screening mammogram for malignant neoplasm of breast (principal)
CPT/HCPCS: 77063; 77067

== ENCOUNTER → 2024-06-30 13:30 | Outpatient (BNV) | payer OTHER, SELFPAY | PROVIDERS: PCP Family Medicine; Visit Provider Internal Medicine | DX: Z12.31 Encounter for screening mammogram for malignant neoplasm of breast (principal) | CPT/HCPCS: 77063; 77067 ==